=== PATIENT | female | born 1935 | race Caucasian/White ===

== ENCOUNTER 2019-08-08 05:44 | Outpatient (RCR) | payer MEDICARE ==
[~2019-08-08] VITALS: Ht 162.6 cm; Wt 81.8 kg
[~2019-08-08 05:44] MED LIST: AMLO5TAB4 PO; CLON0.2T PO; FURO-124 PO; GLUC100016 PO; LACT1CAP74 PO; LEVO100T7 PO; LOSA25TA41 PO; LOSA50TA63 PO; NADO20TA PO; NF-ESOM40C PO; NF-PILO5T PO; NF-RIFA200 PO; NFBIOT1000 PO; POTA10TA36 PO; PREG25CA PO; PREG50CA2 PO; PREN-8 PO; WRF1T PO
== END 2019-08-08 15:42 | disposition home or self-care (01) ==
LOC: PREOP 05:44
PROVIDERS: ATTEND Specialist
DX: Z01.818 Encounter for other preprocedural examination (principal); Z11.59 Encounter for screening for other viral diseases
CPT/HCPCS: 87635

== ENCOUNTER 2019-08-11 07:55 | Day surgery (SDC) | payer MEDICARE ==
[~2019-08-11] VITALS: Ht 162.6 cm; Wt 81.8 kg
--- OUTSIDE RECORDS SUMMARY | 2019-08-11 08:00 | XMS REPORT | Continuity of Care Document ---
Author Organization Unknown Address Unknown Phone Unavailable Allergies Active Description Code Type Severity Reaction Onset Reported/Identified Relationship to Patient Clinical Status Yes Iodinated Contrast Media [id number] Drug Allergy Unknown Rash 08/07/2019 Yes iodine [id number] Drug Allergy Unknown Rash 08/07/2019 Yes latex [id number] Drug Allergy Unknown N/A 08/07/2019 Yes meperidine [id number] Drug Allerg y Unknown N/A 08/07/2019 Medications There is no data. Problems There is no data. Procedures There is no data. Results Test Result Range Coronavirus SARS-CoV-2 SO 2018 - 0 08:10 Coronavirus Ab [Units/volume] in Serum Negative Negative Encounters ACCT No. Visit Date/Time Discharge Status Pt. Type Provider Facility Loc./Unit Complaint [id number] 08/08/2019 05:44:00 020 15:42:00 DIS Outpatient ESTER BOLANOS MD [facility] PREOP CATARACT RIGHT EYE [id number] 08/11/2019 10:00:00 P EN Preadmit [facility]
[2019-08-11] MEDS ORDERED: MOXIFLOXACIN OPHTH SOLN 5 MG/ML 0.3 ML SYRINGE OP ONE (08:15)
[2019-08-11] MEDS ORDERED: LIDOCAINE PF 1% 2 ML VIAL IR PRN (08:15)
[2019-08-11] MEDS ORDERED: POVIDONE (BETADINE) OPHTH SOLN 5% 30 ML OP ONE (08:15)
[2019-08-11] MEDS ORDERED: TIMOLOL MALEATE 0.5% 5 ML (TIMOPTIC) BTL OU PRN (08:15)
[2019-08-11] MEDS ORDERED: MIDAZOLAM 2 MG/2 ML (VERSED) VIAL ONE (08:45)
[2019-08-11 09:29] VITALS: BP 156/107
[2019-08-11] MEDS ORDERED: acetaZOLAMIDE ER 500 MG CAP (DIAMOX SEQUELS) PO ONE (09:30)
[2019-08-11] MEDS: TETRACAINE 0.5% OPHTH SOLN 4 ML BTL (SINGLE DOSE ONLY) OU PRN ×4 (09:30→09:52)
[2019-08-11] MEDS: CYCLOPENTOLATE 1% (CYCLOGYL) 2 ML DROPS OP SCH ×3 (09:40→09:52)
[2019-08-11] MEDS: PHENYLEPHRINE 10% OPHTH (NEO-SYN) 5 ML BTL OU SCH ×3 (09:40→09:52)
--- NOTE | 2019-08-11 09:49 | Ophthalmologist Pre-Op Note ---
Pre-Operative Progress Note H&P Reviewed The H&P was reviewed, patient examined and no changes noted. Date H&P Reviewed: Aug 11, 2019 Time H&P Reviewed: 09:49 Pre-Op Dx Cataract, Right Eye ESTER BOLANOS MD Aug 11, 2019 09:49
--- NOTE | 2019-08-11 11:04 | Ophthalmology Operative Report ---
Cataract removal/placement IOL PREOPERATIVE DIAGNOSIS: Cataract Right Eye POSTOPERATIVE DIAGNOSIS: Cataract Right Eye PROCEDURE: Cataract removal and placement of posterior chamber implant, right eye SURGEON: Jewel Bolanos ANESTHESIA: Topical with sedation COMPLICATIONS: None ESTIMATED BLOOD LOSS: Minimal DESCRIPTION OF PROCEDURE: After proper informed consent was obtained, the patient, a 83 female, was taken to the Operating Room and the right eye was anesthetized with tetracaine. The right eye was then prepped and draped in the usual manner. A wire lid speculum was placed. A paracentesis was made at the left hand position. Preservative free lidocaine was injected into the anterior chamber followed by viscoelastic. A clear corneal incision was made in the temporal position. A capsulorrhexis was preformed and the central nuclear and cortical material were removed. The posterior capsule was polished and Lupillo 19.5 AU00T0 IOL was placed into the capsular bag. The residual viscoelastic was aspirated and balanced saline solution was injected into the anterior chamber. Moxifloxacin was injected into the anterior chamber. The wound was checked and found to be water tight. The patient tolerated the procedure well without complications. JEWEL BOLANOS MD Aug 11, 2019 11:04
[2019-08-11 11:15] VITALS: BP 170/75
--- NOTE | 2019-08-11 12:05 | Anesthesia-General Post-Op ---
MAC Patient Condition Mental Status/LOC: Same as Preop Cardiovascular: Satisfactory Nausea/Vomiting: Absent Respiratory: Satisfactory Pain: Controlled Complications: Absent Post Op Complications Complications None Follow Up Care/Instructions Patient Instructions None needed. Anesthesiology Discharge Order Discharge Order Patient is doing well, no complaints, stable vital signs, no apparent adverse anesthesia problems. No complications reported per nursing. ADIEL PERALTA CRNA Aug 11, 2019 12:05
== END 2019-08-11 11:15 | disposition home or self-care (01) ==
LOC: SDC 07:55
PROVIDERS: ATTEND Specialist
DX: E11.36 Type 2 diabetes mellitus with diabetic cataract (principal); H25.11 Age-related nuclear cataract, right eye; E03.9 Hypothyroidism, unspecified; E11.42 Type 2 diabetes mellitus with diabetic polyneuropathy; D64.9 Anemia, unspecified; Z88.3 Allergy status to other anti-infective agents; Z88.5 Allergy status to narcotic agent; Z91.040 Latex allergy status; Z82.49 Family history of ischemic heart disease and other diseases of the circulatory system; Z95.5 Presence of coronary angioplasty implant and graft
CPT/HCPCS: 66984; V2632